=== PATIENT | female | born 1940 | race Caucasian/White ===

== ENCOUNTER 2021-03-10 10:27 | Outpatient (REF) | payer MEDICARE, SELFPAY ==
--- NOTE | ~2021-03-10 | XR_ITS ---
EXAMINATION: XR ANKLE, LEFT CLINICAL INFORMATION: Pain left foot. COMPARISON: None TECHNIQUE: AP, lateral, and mortise views of the left ankle. FINDINGS: The bones and soft tissues are normal. No acute fracture or dislocation seen. Alignment is anatomic. Joint spaces are maintained. There is a moderate-sized retrocalcaneal enthesophyte. Tiny bone fragments are seen adjacent the lateral and medial malleoli likely old avulsion injuries. XR/XR ankle LT min 3V IMPRESSION: Moderate-sized retrocalcaneal enthesophyte. No visible acute fracture or dislocation seen. Small bone fragments adjacent to the lateral and medial malleoli likely old avulsion injuries.
== END 2021-03-10 10:28 | disposition home or self-care (01) ==
LOC: HO.HMGCX 10:27
PROVIDERS: Visit Provider Hospitalist
DX: M79.672 Pain in left foot (principal)
CPT/HCPCS: 73610